=== PATIENT | female | born 1985 | race Caucasian/White ===

== ENCOUNTER 2020-06-14 17:08 | Emergency (ER) | payer OTHER ==
[~2020-06-14] VITALS: Ht 170.2 cm; Wt 114.0 kg
--- NOTE | 2020-06-14 18:37 | PHYS DOC ---
General Adult EDM: Chief Complaint: ABDOMINAL PAIN HPI: HPI: Patient is a 35 year old complains of a sudden onset right lower quadrant pain started approximately 1630 today. Patient states that she was sitting watching TV when it started. Patient states she became nauseated but did not vomit. Patient denies any urinary symptoms, vaginal discharge, or STI concerns. Patient denies any recent fever chills, cough, congestion, chest pains. Patient denies any radiation of this right lower quadrant pain. Patient denies any shoulder pain, numbness or tingling down her extremities. Patient denies any skin rashes patient denies any other physical complaints or physical illnesses, patient states no one else living in her home is having the same symptoms that she. Patient reports she had a partial hysterectomy 4 years ago, had her tubes removed 2 years prior to that, only has her ovaries left. Patient states she has had no other surgeries. Review of Systems: Review of Systems: 14 body systems of review of systems have been reviewed. See HPI for pertinent positives and negative responses, otherwise all other systems are negative, nonpertinent or noncontributory. Heart Score: Risk Factors: Risk Factors: DM, Current or recent (<one month) smoker, HTN, HLP, family history of CAD, obesity. Risk Scores: Score 0 - 3: 2.5% MACE over next 6 weeks - Discharge Home Score 4 - 6: 20.3% MACE over next 6 weeks - Admit for Clinical Observation Score 7 - 10: 72.7% MACE over next 6 weeks - Early Invasive Strategies Current Medications: Patient does not take medications at home. Allergies: Allergies: Patient states she is allergic to sulfa and erythromycin. Physical Exam: PE: Constitutional: Well developed, well nourished, no acute distress, non-toxic appearance. HENT: Normocephalic, atraumatic, bilateral external ears normal, oropharynx moist, no oral exudates, nose normal. Eyes: PERRLA, EOMI, conjunctiva normal, no discharge. Neck: Normal range of motion, no tenderness, supple, no stridor. Cardiovascular:Heart rate regular rhythm, no murmur Lungs & Thorax: Bilateral breath sounds clear to auscultation Abdomen: Bowel sounds normal, soft, tenderness to right lower quadrant, positive McBurney's point tenderness, positive straight leg raise pain, no masses, no pulsatile masses. Skin: Warm, dry, no erythema, no rash. Back: No tenderness, no CVA tenderness. Extremities: No tenderness, no cyanosis, no clubbing, ROM intact, no edema. Neurologic: Alert and oriented X 3, normal motor function, normal sensory function, no focal deficits noted. Psychologic: Affect normal, judgement normal, mood normal. Current Patient Data: Labs: Laboratory Tests Test 06/14/20 17:57 06/14/20 19:18 Urine Collection Type Unknown Urine Color Yellow Urine Clarity Clear Urine pH 7.0 Urine Specific [place] 1.015 Urine Protein Negative mg/dL Urine Glucose (UA) Negative mg/dL Urine Ketones (Stick) Negative mg/dL Urine Blood Negative Urine Nitrite Negative Urine Bilirubin Negative Urine Urobilinogen Dipstick 0.2 mg/dL Urine Leukocyte Esterase Negative Urine RBC 1-2 /HPF Urine WBC 1-4 /HPF Urine Squamous Epithelial Cells Many /LPF Urine Bacteria Moderate /HPF Urine Mucus Slight /LPF White Blood Count 12.3 x10^3/uL Red Blood Count 5.31 x10^6/uL Hemoglobin 15.2 g/dL Hematocrit 45.1 % Mean Corpuscular Volume 85 fL Mean Corpuscular Hemoglobin 29 pg Mean Corpuscular Hemoglobin Concent 34 g/dL Red Cell Distribution Width 14.1 % Platelet Count 304 x10^3/uL Neutrophils (%) (Auto) 81 % Lymphocytes (%) (Auto) 14 % Monocytes (%) (Auto) 4 % Eosinophils (%) (Auto) 1 % Basophils (%) (Auto) 1 % Neutrophils # (Auto) 9.9 x10^3/uL Lymphocytes # (Auto) 1.7 x10^3/uL Monocytes # (Auto) 0.5 x10^3/uL Eosinophils # (Auto) 0.1 x10^3/uL Basophils # (Auto) 0.1 x10^3/uL Sodium Level 137 mmol/L Potassium Level 3.9 mmol/L Chloride Level 100 mmol/L Carbon Dioxide Level 26 mmol/L Anion Gap 11 Blood Urea Nitrogen 9 mg/dL Creatinine 0.6 mg/dL Estimated GFR (Cockcroft-Gault) 113.1 BUN/Creatinine Ratio 15 Glucose Level 114 mg/dL Lactic Acid Level 1.3 mmol/L Calcium Level 9.2 mg/dL Total Bilirubin 0.3 mg/dL Aspartate Amino Transf (AST/SGOT) 32 U/L Alanine Aminotransferase (ALT/SGPT) 60 U/L Alkaline Phosphatase 82 U/L Total Protein 8.0 g/dL Albumin 4.0 g/dL Albumin/Globulin Ratio 1.0 Lipase 299 U/L Current Medications Medications (Trade) Dose Ordered Sig/Goldy Route PRN Reason Start Time Stop Time Status Last Admin Dose Admin Sodium Chloride 1,000 ml @ 1,000 mls/hr 1X ONCE IV 06/14/20 18:45 06/14/20 19:44 DC 06/14/20 19:21 Ketorolac Tromethamine (Toradol 30mg Vial) 30 mg 1X ONCE IVP 06/14/20 19:15 06/14/20 19:16 DC 06/14/20 19:21 Iohexol (Omnipaque 300 Mg/ml) 75 ml 1X ONCE IV 06/14/20 19:45 06/14/20 19:46 DC 06/14/20 19:46 Info (CONTRAST GIVEN -- Rx MONITORING) 1 each PRN DAILY PRN MC SEE COMMENTS 06/14/20 19:45 06/16/20 19:44 EKG: EKG: [] Radiology/Procedures: Radiology/Procedures: STATUS: REG ER ORD. PHYSICIAN: SABINO RICO APRN REASON: RIGHT LOW ABDOMEN PAIN PROCEDURE: CT ABD PELV W/ IV CONTRST ONLY CT ABDOMEN+PELVIS W History: Reason: RIGHT LOW ABDOMEN PAIN / Spl. Instructions: [id number] 75ML / History: Comparison: None. Technique: After administration of intravenous contrast, helical CT of the abdomen and pelvis was performed from the lung bases through the ischial tuberosities. Coronal and sagittal reconstructions were obtained. 75 mL of Omnipaque 300 were used. One or more of the following dose reduction techniques were utilized: Automated exposure control (AEC), Adjustment of mA and/or kV according to patient size, Use of iterative reconstruction technique such as A SiR, CT scan done according to ALARA and image gently/image wisely Abdomen Findings: The visualized lung bases are clear. The liver, gallbladder, pancreas, spleen, and bilateral adrenal glands are normal. Symmetric renal enhancement. There is no focal renal mass. There is no hydronephrosis. The visualized loops of small bowel are normal. The visualized loops of large bowel are normal. There is no evidence of bowel obstruction. Appendix is normal. There is no free fluid. There is no mesenteric or retroperitoneal adenopathy. The abdominal aorta is normal in caliber. Pelvis Findings: Urinary bladder is normal. Hysterectomy. Ovaries are present, larger on the right. No pelvic free fluid. There is no pelvic or inguinal adenopathy. There is no acute bony abnormality. IMPRESSION: 1. No acute findings. Normal appendix. 2. Hysterectomy. Ovaries are present, larger on the right although poorly evaluated by CT. Electronically signed by: Coty Rob MD (06/14/2020 8:15 PM) [facility] DICTATED and SIGNED BY: COTY ROB MD DATE: 06/14/[id number] 0 Course & Med Decision Making: Course & Med Decision Making Pertinent Labs and Imaging studies reviewed. (See chart for details) 35-year-old female presents emergency department with physical complaint and physical exam concerning for an appendicitis. Work-up started in ER, urinalysis ordered, CT with IV contrast ordered. Patient given a liter of IV normal saline along with 30 mg Toradol and 4 mg IV Zofran for nausea pending results. Patient's urine was not infected, patient's lab work not suggestive of pancreatitis, upon reexamination of the patient, patient's pain had gone from a 9/10 down to a 2/10, patient states her nausea is relieved. CT results pending CT results were negative for acute abdomen, per radiologist interpretation the patient does not have an appendicitis, discussed CT results with the patient, patient will be discharged home with p.o. NSAID pain medication, will follow up with her doctor this week for reevaluation, will return to the emergency department for worsening symptoms or other concerns. Diagnosis abdominal pain unknown etiology. Unlikely surgical abdomen, appendicitis, strangulated bowel, strangulated hernia, perforated bowel, STI, urinary tract infection, deep tissue infection Dragon Disclaimer: Dragnatasha Disclaimer: This electronic medical record was generated, in whole or in part, using a voice recognition dictation system. Departure Departure Impression: Primary Impression: Abdominal pain Qualified Codes: R10.31 - Right lower quadrant pain Disposition: 01 DC HOME SELF CARE/HOMELESS Condition: IMPROVED Referrals: RENATA VICK [employer] DEVELOPER (PCP) Patient Instructions: Abdominal Pain Additional Instructions: Please take prescription medications as directed, follow-up with your doctor this week and let them know about your abdominal pain for further evaluation. Please return the emergency department for worsening symptoms or other concerns. EMERGENCY DEPARTMENT GENERAL DISCHARGE INSTRUCTIONS Thank you for coming to [facility] Emergency Department (ED) today and trusting us with you care. We trust that you had a positive experience in our Emergency Department. If you wish to speak to the department management, you may call the Director at [phone]. YOUR FOLLOW UP INSTRUCTIONS ARE FOLLOWS: 1. Do you have a private Doctor? If you do not have a private doctor, please ask for a resource list of physicians or clinics that may be able to assist you with follow up care. 2. The Emergency Physicain has interpreted your x-rays. The X-Ray specialist will also review them. If there is a change in the findings, you will be notified in 48 hours when at all possible. 3. A lab test or culture has been done, your results will be reviewed and you will be notified if you need a change in treatment. ADDITIONAL INSTRUCTIONS AND INFORMATION: 1. Your care today has been supervised by a physician who is specially trained in emergency care. Many problems require more than one evaluation for a complete diagnosis and treatment. We recommend that you schedule your follow up appointment as recommended to ensure complete treatment of you illness or injury. If you are unable to obtain follow up care and continue to have a problem, or if your condition worsens, we recommend that you return to the ED. 2. We are not able to safely determine your condition over the phone nor are we able to give sound medical advice over the phone. For these safety reasons, if you call for medical advice we will ask you to come to the ED for further evaluation. 3. If you have any questions regarding these discharge instructions please call the ED at [phone]. SAFETY INFORMATION: In the interest of safety, wellness, and injury prevention; we encourage you to wear your sealbelt, if you smoke; quite smoking, and we encourage family to use a protective helmet for bicycling and other sporting events that present an increased risk for head injury. IF YOUR SYMPTOMS WORSEN OR NEW SYMPTOMS DEVELOP, OR YOU HAVE CONCERNS ABOUT YOUR CONDITION; OR IF YOUR CONDITION WORSENS WHILE YOU ARE WAITING FOR YOUR FOLLOW UP APPOINTMENT; EITHER CONTACT YOUR PRIMARY CARE DOCTOR, THE PHYSICIAN WHOSE NAME AND NUMBER YOU WERE GIVEN, OR RETURN TO THE ED IMMEDIATELY. Scripts Ibuprofen (IBUPROFEN) 600 Mg Tablet 600 MG PO PRN Q6HRS PRN for INFLAMMATION, #20 TAB 0 Refills Prov: SABINO RICO APRN 06/14/20 SABINO RICO APRN Jun 14, 2020 18:37
[2020-06-14] MEDS ORDERED: IV NORMAL SALINE 1000ML BAG 1,000 ML IV ONE (18:45)
[2020-06-14 18:49] LABS: BILIRUBIN,URINE NEGATIVE (NEG); CLARITY,URINE CLEAR; COLOR,URINE YELLOW; NITRITE,URINE NEGATIVE (NEG); PROTEIN,URINE NEGATIVE (NEG-TRACE); UROBILINOGEN,URINE 0.2 mg/dL (0.2 mg/dL)
[2020-06-14 19:04] LABS: BACTERIA,URINE MODERATE /HPF (0-FEW)
[2020-06-14] MEDS ORDERED: KETOROLAC 30 MG/ML VIAL. IVP ONE (19:15)
[2020-06-14 19:28] LABS: BASO # 0.1 x10^3/uL (0.0-0.2); BASO % 1 % (0-3); EOS # 0.1 x10^3/uL (0.0-0.7); EOS % 1 % (0-3); HEMATOCRIT 45.1 % (36.0-47.0); HEMOGLOBIN 15.2 g/dL (12.0-15.5); LYMPH # 1.7 x10^3/uL (1.0-4.8); LYMPH % 14 % (24-48); MEAN CORPUSCULAR HEMOGLOBIN 29 pg (25-35); MEAN CORPUSCULAR HGB CONC 34 g/dL (31-37); MEAN CORPUSCULAR VOLUME 85 fL (79-100); MONO # 0.5 x10^3/uL (0.0-1.1); MONO % 4 % (0-9); NEUT # 9.9 x10^3/uL (1.8-7.7); NEUT % 81 % (31-73); PLATELET COUNT 304 x10^3/uL (140-400); RED BLOOD COUNT 5.31 x10^6/uL (3.50-5.40); RED CELL DISTRIBUTION WIDTH 14.1 % (11.5-14.5); WHITE BLOOD COUNT 12.3 x10^3/uL (4.0-11.0)
[2020-06-14 19:36] LABS: CALCIUM 9.2 mg/dL (8.5-10.1); CREATININE 0.6 mg/dL (0.6-1.0); GFR 113.1; POTASSIUM 3.9 mmol/L (3.5-5.1)
[2020-06-14 19:42] LABS: TOTAL BILIRUBIN 0.3 mg/dL (0.2-1.0)
[2020-06-14] MEDS ORDERED: CONTRAST GIVEN. MC PRN (19:45)
[2020-06-14] MEDS ORDERED: IOHEXOL 300 MG/ML 100ML VIAL. IV ONE (19:45)
--- NOTE | 2020-06-14 20:18 | RAD ---
CT ABDOMEN+PELVIS W History: Reason: RIGHT LOW ABDOMEN PAIN / Spl. Instructions: [id number] 75ML / History: Comparison: None. Technique: After administration of intravenous contrast, helical CT of the abdomen and pelvis was per formed from the lung bases through the ischial tuberosities. Coronal and sagittal reconstructions wer e obtained. 75 mL of Omnipaque 300 were used. One or more of the following dose reduction techniques were utilized: Automated exposure control (AEC), Adjustment of mA and/or kV according to patient size , Use of iterative reconstruction technique such as ASiR, CT scan done according to ALARA and image g ently/image wisely Abdomen Findings: The visualized lung bases are clear. The liver, gallbladder, pancreas, spleen, and bilateral adrenal glands are normal. Symmetric renal enhancement. There is no focal renal mass. There is no hydronephrosis. The visualized loops of small bowel are normal. The visualized loops of large bowel are normal. There is no evidence of bowel obstruction. Appendix is normal. There is no free fluid. There is no mesenteric or retroperitoneal adenopathy. The abdominal aorta is normal in caliber. Pelvis Findings: Urinary bladder is normal. Hysterectomy. Ovaries are present, larger on the right. No pelvic free flu id. There is no pelvic or inguinal adenopathy. There is no acute bony abnormality. IMPRESSION: 1. No acute findings. Normal appendix. 2. Hysterectomy. Ovaries are present, larger on the right although poorly evaluated by CT. Electronically signed by: Osman Singh MD (06/14/2020 8:15 PM) [facility]
[2020-06-14] MEDS ORDERED: IBUP-1007 PO (22:16)
[2020-06-14 22:21] VITALS: BP 144/64
== END 2020-06-14 22:22 | disposition home or self-care (01) ==
LOC: ER 17:08
DX: R10.31 Right lower quadrant pain (principal); R11.0 Nausea; Z88.2 Allergy status to sulfonamides
CPT/HCPCS: 36415; 74177; 80053; 81001; 83605; 83690; 85025; 87086; 96361; 96374; 99285; J1885; J7030; Q9967; 96375